=== PATIENT | female | born 1960 | race Caucasian/White ===

== ENCOUNTER 2016-10-22 06:51 | Observation (INO) | payer BC, MEDICAID ==
[2016-10-22 07:34] VITALS: RESP 18
--- NOTE | 2016-10-22 08:00 | C.PDOC ---
History Of Present Illness 56-year-old female, PMHx includes Hypertension, right salpingo-oopherectomy and hysterectomy, presents to the emergency department with complaints of left- lower quadrant abdominal pain that started four days ago. Pain is intermittent in nature, radiating to the left-back. Patent denies any nausea, vomiting, fevers, chills, dysuria/frequency, dizziness, or any other associated symptoms. No other complaints at this time. PMD Timmy Eaton MD. Time Seen by Provider: 10/22/16 07:34 Chief Complaint (Nursing): Abdominal Pain History Per: Patient History/Exam Limitations: no limitations Onset/Duration Of Symptoms: Days (4) Current Symptoms Are (Timing): Still Present Severity: Moderate Location Of Pain/Discomfort: LLQ Radiation Of Pain To:: Back (Left) Quality Of Discomfort: "Pain" Past Medical History Reviewed: Historical Data, Nursing Documentation, Vital Signs Vital Signs: Last Vital Signs Temp 97.8 F 10/22/16 07:29 Pulse 69 10/22/16 07:29 Resp 18 10/22/16 07:29 BP 125/86 10/22/16 07:29 Pulse Ox 97 10/22/16 10:55 - Medical History PMH: HTN Family History: States: No Known Family Hx - Social History Hx Tobacco Use: No Hx Alcohol Use: No Hx Substance Use: No - Immunization History Hx Tetanus Toxoid Vaccination: No Hx Influenza Vaccination: No Hx Pneumococcal Vaccination: No Review Of Systems Except As Marked, All Systems Reviewed And Found Negative. Constitutional: Negative for: Fever, Chills Gastrointestinal: Positive for: Abdominal Pain. Negative for: Nausea, Vomiting , Diarrhea Genitourinary: Negative for: Dysuria, Frequency, Vaginal Discharge, Vaginal Bleeding, Pelvic Pain Musculoskeletal: Positive for: Back Pain Neurological: Negative for: Headache, Dizziness Physical Exam - Physical Exam Appears: Non-toxic, No Acute Distress Skin: Warm, Dry, No Rash Head: Atraumatic, Normacephalic Eye(s): bilateral: Normal Inspection, PERRL, EOMI Oral Mucosa: Moist Lips: Normal Appearing Neck: Normal ROM Cardiovascular: Rhythm Regular, No Murmur Respiratory: Normal Breath Sounds, No Accessory Muscle Use Gastrointestinal/Abdominal: Soft, Tenderness (Left-lower quadrant), No Guarding , No Rebound Back: Normal Inspection, No CVA Tenderness Extremity: Normal ROM Neurological/Psych: Oriented x3 ED Course And Treatment - Laboratory Results Result Diagrams: 10/22/16 08:32 10/22/16 08:32 O2 Sat by Pulse Oximetry: 97 - CT Scan/US ct ABD/PEL Other Rad Studies (CT/US): Read By Radiologist, Radiology Report Reviewed CT/US Interpretation: Accession No. : [id number]. Patient Name / ID : LUIZA MEYER / [id number]. Exam Date : 10/22/2016 10:14:02 ( Approved ). Study Comment : Sex / Age : F / 56Y. Creator : Gorge To MD. Dictator : Gorge To MD. Cardroom Attendant : Toe Stapler : Gorge To MD. Approver2 : Report Date : 10/22/2016 10:42:16. My Comment : . PROCEDURE: CT Abdomen and Pelvis without intravenous contrast. HISTORY: Left lower quadrant abdominal pain. COMPARISON: None. TECHNIQUE: Multiple contiguous axial images were performed through the abdomen and pelvis without intravenous contrast. Subsequently, sagittal and coronal reformatted images were obtained. Radiation dose: Total exam DLP = 974 mGy-cm. This CT exam was performed using one or more of the following dose reduction techniques: Automated exposure control, adjustment of the mA and/or kV according to patient size, and/ or use of iterative reconstruction technique. FINDINGS: LOWER THORAX: Mild focal consolidative changes seen at the medial aspect of the right middle lobe inferiorly. LIVER: Mild fatty infiltration of the liver. GALLBLADDER AND BILE DUCTS: Unremarkable. PANCREAS: Unremarkable. No gross lesion or ductal dilatation. SPLEEN: Unremarkable. ADRENALS: Unremarkable. No mass. KIDNEYS AND URETERS: Unremarkable. No hydronephrosis. No solid mass. VASCULATURE: Calcification and plaque within the aorta. BOWEL: Fecal retention in the colon. 6 millimeter perirectal lymph node on series 3, image 159. Mild underdistention of the sigmoid colon. Diverticuli. Some motion artifact at the level of the distal descending colon, somewhat limits evaluation. No gross acute diverticulitis noted. Clinical correlation. APPENDIX: Unremarkable. Normal appendix. PERITONEUM: Unremarkable. No free fluid. No free air. LYMPH NODES: Unremarkable. No enlarged lymph nodes. BLADDER: Unremarkable. REPRODUCTIVE: Unremarkable. BONES: No acute fracture. OTHER FINDINGS: None. IMPRESSION: 1. Fecal retention in the colon. 2. Mild underdistention of the sigmoid colon. Diverticuli. Some motion artifact at the level of the distal descending colon, somewhat limits evaluation. No gross acute diverticulitis noted. Clinical correlation. 3. Mild fatty infiltration of the liver. Medical Decision Making Medical Decision Making: Impression 56y/o F, comes in w/ LLQ abdominal pain, radiating to back x4 days. Plan: * CT abd/pel * BMP * CBC * Morphine, IVF, Zofran * Urinalysis * Reassess and Disposition ED OBSERVATION Discharge: Yes Date of observation admission: 10/22/16 Time of observation admission: 07:30 - Observation admission statement Patient is being placed in observation because:: ABD PAIN - Goals of Observation Goals of observation are:: NO SURGICAL ABD; SX IMPROVE. - Progress Note Progress Note: 10/22/16 11:09 NO S/S ACUTE ABD. APPEARS COMFORTABLE. CT RESULTS REVIEWED Disposition Counseled Patient/Family Regarding: Studies Performed, Diagnosis, Need For Followup, Rx Given - Disposition Disposition: HOME/ ROUTINE Disposition Time: 11:09 Condition: IMPROVED - Clinical Impression Clinical Impression: Abdominal pain, Constipation - Scribe Statement The provider has reviewed the documentation as recorded by the Isabella Rodríguez All medical record entries made by the Isabella were at my direction and personally dictated by me. I have reviewed the chart and agree that the record accurately reflects my personal performance of the history, physical exam, medical decision making, and the department course for this patient. I have also personally directed, reviewed, and agree with the discharge instructions and disposition.
[2016-10-22] MEDS ORDERED: Iohexol 240 (50 ml) PO STA (08:03)
[2016-10-22] MEDS ORDERED: Sodium Chloride 0.9% 1,000 ML IV ONE (08:03)
[2016-10-22] MEDS ORDERED: Sodium Chloride 0.9% 1,000 ML ONE (08:13)
[2016-10-22] MEDS ORDERED: Iohexol 240 (50 ml) ONE (08:13)
[2016-10-22 08:36] LABS: BASO # 0.1 K/uL (0.0-0.2); BASO % 0.7 % (0.0-2.0); EOS # 0.2 K/uL (0.0-0.7); HEMATOCRIT 43.4 % (34.0-47.0); LYMPH # 2.5 K/uL (1.0-4.3); LYMPH % 33.3 % (20.0-40.0); MEAN CELL VOLUME 85.8 fL (81.0-99.0); MEAN CORPUSCULAR HEMOGLOBIN 27.8 pg (27.0-31.0); MEAN CORPUSCULAR HGB CONC 32.4 g/dL (33.0-37.0); MEAN PLATELET VOLUME 9.6 fL (7.2-11.7); MONO # 0.8 K/uL (0.0-0.8); MONO % 11.2 % (0.0-10.0); NRBC % 0.1 % (0.0-2.0); RED CELL DISTRIBUTION WIDTH 13.6 % (11.5-14.5); WHITE BLOOD COUNT 7.5 K/uL (4.8-10.8)
[2016-10-22 08:42] LABS: CHLORIDE 104 mmol/L (98-107); SODIUM 140 mmol/L (132-148)
[2016-10-22 08:43] LABS: POTASSIUM 4.1 mmol/L (3.6-5.2)
[2016-10-22 08:45] LABS: GFR AFRICAN-AMERICAN > 60
[2016-10-22 08:46] LABS: BLOOD UREA NITROGEN 20 mg/dL (7-17); CARBON DIOXIDE 26 mmol/L (22-30); GLUCOSE,RANDOM 109 mg/dL (65-105)
[2016-10-22 09:49] LABS: RBC URINE < 1 /hpf (0-3); URINE BILIRUBIN NEGATIVE (NEGATIVE); URINE BLOOD NEGATIVE (NEGATIVE); URINE COLOR Yellow (YELLOW); URINE GLUCOSE (UA) NORMAL (Normal); URINE KETONE NEGATIVE (NEGATIVE); URINE LEUKOCYTE ESTERASE NEG Leu/uL (Negative); URINE PROTEIN NEGATIVE (NEGATIVE); URINE UROBILINOGEN NORMAL mg/dL (0.2-1.0); WBC URINE 1 /hpf (0-5)
--- NOTE | 2016-10-22 10:44 | CT ---
PROCEDURE: CT Abdomen and Pelvis without intravenous contrast HISTORY: Left lower quadrant abdominal pain. COMPARISON: None. TECHNIQUE: Multiple contiguous axial images were performed through the abdomen and pelvis without intravenous contrast. Subsequently, sagittal and coronal reformatted images were obtained. Radiation dose: Total exam DLP = 974 mGy-cm. This CT exam was performed using one or more of the following dose reduction techniques: Automated exposure control, adjustment of the mA and/or kV according to patient size, and/or use of iterative reconstruction technique. FINDINGS: LOWER THORAX: Mild focal consolidative changes seen at the medial aspect of the right middle lobe inferiorly. LIVER: Mild fatty infiltration of the liver. GALLBLADDER AND BILE DUCTS: Unremarkable. PANCREAS: Unremarkable. No gross lesion or ductal dilatation. SPLEEN: Unremarkable. ADRENALS: Unremarkable. No mass. KIDNEYS AND URETERS: Unremarkable. No hydronephrosis. No solid mass. VASCULATURE: Calcification and plaque within the aorta. BOWEL: Fecal retention in the colon. 6 millimeter perirectal lymph node on series 3, image 159. Mild underdistention of the sigmoid colon. Diverticuli. Some motion artifact at the level of the distal descending colon, somewhat limits evaluation. No gross acute diverticulitis noted. Clinical correlation. APPENDIX: Unremarkable. Normal appendix. PERITONEUM: Unremarkable. No free fluid. No free air. LYMPH NODES: Unremarkable. No enlarged lymph nodes. BLADDER: Unremarkable. REPRODUCTIVE: Unremarkable. BONES: No acute fracture. OTHER FINDINGS: None. IMPRESSION: 1. Fecal retention in the colon. 2. Mild underdistention of the sigmoid colon. Diverticuli. Some motion artifact at the level of the distal descending colon, somewhat limits evaluation. No gross acute diverticulitis noted. Clinical correlation. 3. Mild fatty infiltration of the liver.
[2016-10-22 11:19] VITALS: BP 100/60; PULSE 56; TEMP 97.5; O2SAT 100
== END 2016-10-22 11:09 | disposition home or self-care (01) ==
LOC: C.ER 06:51 → C.9OBSV 07:30
PROVIDERS: ADMIT Emergency Medicine; ATTEND Emergency Medicine
DX: R10.32 Left lower quadrant pain (principal); I10 Essential (primary) hypertension; K59.00 Constipation, unspecified
CPT/HCPCS: 36415; 74176; 80048; 81001; 85025; 96374; 96375; 99284; G0378